=== PATIENT | male | born 1970 | race Asian ===

== ENCOUNTER 2019-05-09 18:59 | Emergency (ER) | payer BC ==
[~2019-05-09] VITALS: Ht 175.3 cm; Wt 70.3 kg
--- NOTE | 2019-05-09 19:16 | NUR ---
PT IS IN ROOM #2B. DR MACE EVALUATED THE PT.
--- NOTE | 2019-05-09 19:56 | NUR ---
Patient out of unit for x ray.
--- NOTE | 2019-05-09 20:01 | NUR ---
Patient back from ct scan with no distress noted.
[2019-05-09 20:10] LABS: BASOPHILS % (AUTO) 0.3 % (0.0-2.0); EOSINOPHILS # (AUTO) 0.1 K/uL (0.0-0.7); EOSINOPHILS % (AUTO) 1.3 % (0.0-7.0); HEMATOCRIT 47.7 % (36.7-47.1); HEMOGLOBIN 16.1 g/dL (12.5-16.3); LYMPHOCYTES # (AUTO) 1.2 K/uL (20.0-40.0); LYMPHOCYTES % (AUTO) 19.8 % (20.5-51.5); MEAN CORPUSCULAR HEMOGLOBIN 31.8 uug (23.8-33.4); MEAN CORPUSCULAR HGB CONC 34 g/dL (32.5-36.3); MEAN CORPUSCULAR VOLUME 94.2 fL (73.0-96.2); MONOCYTES # (AUTO) 0.5 K/uL (2.0-10.0); MONOCYTES % (AUTO) 8.1 % (0.0-11.0); NEUTROPHILS # (AUTO) 4.4 K/uL (1.8-8.9); NEUTROPHILS % (AUTO) 70.5 % (38.5-71.5); PLATELET COUNT (AUTO) 225 K/uL (152-348); RED BLOOD CELL COUNT(AUTO) 5.06 MIL/uL (4.06-5.63); WHITE BLOOD COUNT (AUTO) 6.3 K/uL (3.6-10.2)
[2019-05-09 20:20] LABS: CREATININE 1.1 mg/dL (0.6-1.3); POTASSIUM 5.1 mmol/L (3.5-5.1)
[2019-05-09] MEDS ORDERED: DEXAMETHASONE 5 MG/5 ML LIQUID UDC ONE (20:54)
[2019-05-09] MEDS ORDERED: DEXAMETHASONE 0.5 MG/5 ML LIQ UDC PO ONE (21:00)
--- NOTE | 2019-05-09 21:14 | NUR ---
Patient discharged to home in stable conditon with family taking patient home. Written and verbal after care instructions given. Patient verbalizes understanding of instructions. Walked out of ER with no distress noted.
[2019-05-09 21:15] VITALS: BP 138/89
== END 2019-05-09 21:15 | disposition home or self-care (01) ==
LOC: ER 19:02
DX: J06.9 Acute upper respiratory infection, unspecified (principal); R06.02 Shortness of breath; R00.2 Palpitations
CPT/HCPCS: 36415; 70360; 71046; 80048; 84484; 85025; 93005; 99285; J8540; 70030-TC; A4663